=== PATIENT | female | born 2000 | race Caucasian/White ===

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

== ENCOUNTER 2021-05-19 20:31 | Emergency (ER) | payer BC ==
[2021-05-19 20:40] VITALS: BP 156/93; PULSE 117
[2021-05-19] MEDS ORDERED: Lactated Ringers 1,000 ML IV ONE (20:41)
[2021-05-19] MEDS ORDERED: Sodium Chloride 0.9% 2.5 ML Syringe FLUSH PRN (20:41)
[2021-05-19] MEDS ORDERED: Sodium Chloride 0.9% 10 ML Syringe FLUSH PRN (20:41)
--- NOTE | 2021-05-19 20:54 | EDM.PDOC ---
ED HPI GENERAL MEDICAL PROBLEM - General Chief Complaint: Gastrointestinal Problem Stated Complaint: BLOOD IN STOOL Time Seen by Provider: 05/19/21 20:36 - History of Present Illness INITIAL COMMENTS - FREE TEXT/NARRATIVE: 20-year-old female history of endometriosis history of hemorrhoids in the past presenting with minimally painful bright red blood per rectum. Patient finished a menstrual cycle 3 days ago she has had some ongoing residual abdominal pain that she was attributing to that. However this afternoon she had a bowel movement and noted to large amount of bright red blood. She inserted a tampon and left it in for period of time to ensure that this was not vaginal bleeding. The tampon has been clean and showed no evidence of blood and so she is confident that this is rectal bleeding. She notes that this is been significantly different than the hemorrhoid she has dealt with before. No fevers or chills no prior history of GI bleeding. The pain in the abdomen is in primarily the left lower quadrant. Is currently 6 out of 10 no alleviating factors or radiation. 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, left Musculoskeletal History: Reports: Other (See Below) Other Musculoskeletal History: hx of "afew minor fractures", hx dislocated elbow Neurological History: Reports: Concussion, Migraines Oncologic (Cancer) History: Reports: None Dermatologic History: Reports: Other (See Below) - Infectious Disease History Infectious Disease History: Reports: Chicken Pox - Past Surgical History Head Surgeries/Procedures: Reports: None Female Surgical History: Reports: Other (See Below) Other Female Surgeries/Procedures: ureteral reimplantation at the age of 1 Oncologic Surgical History: Reports: Biopsy of Breast Social & Family History - Family History Family Medical History: No Pertinent Family History - Caffeine Use Caffeine Use: Reports: Coffee Caffeine Use Comment: 1-2cups/day ED ROS GENERAL - Review of Systems Review Of Systems: See Below Free Text/Narrative/Comment: General: No fever. Skin: No rash. Eyes: No vision problems. ENT: No sore throat. Neck: No neck stiffness. Respiratory: No shortness of breath. Cardiac: No chest pain. Gastrointestinal: Per HPI Urinary: No dysuria. Musculoskeletal: No myalgias/arthralgias. Neurologic: No headache. ED EXAM, GENERAL - Physical Exam Exam: See Below Free Text/Narrative:: General Appearance: No acute distress, appears comfortable Skin: No rash HEENT: Normocephalic/atraumatic, sclera anicteric, mucous membranes moist Neck: Normal range of motion Chest and Lungs: Bilateral breath sounds, clear to auscultation Cardiovascular: Minimally tachycardic rate, regular rhythm, intact distal perfusion Abdomen: Soft, diffuse tenderness that is most pronounced in the left lower quadrant Back: Normal Musculoskeletal: No edema or tenderness Neurologic: Awake, alert, no obvious deficits, moving all extremities Psychiatric: Appropriate, cooperative Course - Vital Signs Last Recorded V/S: Last Vital Signs Temp 99.1 F 05/19/21 20:35 Pulse 117 H 05/19/21 20:35 Resp 18 05/19/21 20:35 BP 156/93 H 05/19/21 20:35 Pulse Ox 98 05/19/21 20:35 - Orders/Labs/Meds Orders: Active Orders 24 hr Category Date Time Status Cardiac Monitoring [RC] . DIRECTED Care 05/19/21 20:41 Active Ketorolac [Toradol] Med 05/19/21 23:35 Stat 15 mg IVPUSH NOW STA Sodium Chloride 0.9% [Saline Flush] Med 05/19/21 20:41 Active 10 ml FLUSH ASDIRECTED PRN Sodium Chloride 0.9% [Saline Flush] Med 05/19/21 20:41 Active 2.5 ml FLUSH ASDIRECTED PRN Saline Lock Insert [OM.PC] Stat Oth 05/19/21 20:41 Ordered Medication Orders Sodium Chloride (Sodium Chloride 0.9% 10 Ml Syringe) 10 ml FLUSH ASDIRECTED PRN PRN Reason: Keep Vein Open Last Admin: 05/19/21 21:27 Dose: 10 ml Documented by: LICHREYMUNDO Sodium Chloride (Sodium Chloride 0.9% 2.5 Ml Syringe) 2.5 ml FLUSH ASDIRECTED PRN PRN Reason: Keep Vein Open Last Admin: 05/19/21 21:27 Dose: 2.5 ml Documented by: BRANDON Labs: Laboratory Tests 05/19/21 05/19/21 05/19/21 Range/Units 20:40 21:30 21:30 WBC 10.86 (4.0-11.0) K/uL RBC 4.41 (4.30-5.90) M/uL Hgb 13.5 (12.0-16.0) g/dL Hct 39.5 (36.0-46.0) % MCV 89.6 (80.0-98.0) fL MCH 30.6 (27.0-32.0) pg MCHC 34.2 (31.0-37.0) g/dL RDW Std Deviation 40.0 (28.0-62.0) fl RDW Coeff of Ish 12 (11.0-15.0) % Plt Count 330 (150-400) K/uL MPV 9.00 (7.40-12.00) fL Neut % (Auto) 56.2 (48.0-80.0) % Lymph % (Auto) 36.0 (16.0-40.0) % [place] % (Auto) 6.1 (0.0-15.0) % Eos % (Auto) 1.2 (0.0-7.0) % Baso % (Auto) 0.5 (0.0-1.5) % Neut # (Auto) 6.1 H (1.4-5.7) K/uL Lymph # (Auto) 3.9 H (0.6-2.4) K/uL [place] # (Auto) 0.7 (0.0-0.8) K/uL Eos # (Auto) 0.1 (0.0-0.7) K/uL Baso # (Auto) 0.1 (0.0-0.1) K/uL Nucleated RBC % 0.0 /100WBC Nucleated RBCs # 0 K/uL Sodium 139 (136-145) mmol/L Potassium 4.0 (3.5-5.1) mmol/L Chloride 104 (98-107) mmol/L Carbon Dioxide 26.1 (21.0-32.0) mmol/L BUN 14 (7.0-18.0) mg/dL Creatinine 0.9 (0.6-1.0) mg/dL Est Cr Clr Drug Dosing 81.11 mL/min Estimated GFR (MDRD) > 60.0 ml/min Glucose 92 (74-106) mg/dL Calcium 8.7 (8.5-10.1) mg/dL Total Bilirubin 0.2 (0.2-1.0) mg/dL AST 26 (15-37) IU/L ALT 54 (14-63) IU/L Alkaline Phosphatase 107 (46-116) U/L Total Protein 6.9 (6.4-8.2) g/dL Albumin 4.0 (3.4-5.0) g/dL Globulin 2.9 (2.6-4.0) g/dL Albumin/Globulin Ratio 1.4 (0.9-1.6) Urine HCG, Qual NEGATIVE (NEGATIVE) Meds: Medications Generic Name Dose Route Start Last Admin Trade Name Freq PRN Reason Stop Dose Admin Sodium Chloride 10 ml 05/19/21 20:41 05/19/21 21:27 Sodium Chloride 0.9% 10 Ml Syringe FLUSH 10 ml ASDIRECTED PRN Administration Keep Vein Open Sodium Chloride 2.5 ml 05/19/21 20:41 05/19/21 21:27 Sodium Chloride 0.9% 2.5 Ml Syringe FLUSH 2.5 ml ASDIRECTED PRN Administration Keep Vein Open Discontinued Medications Generic Name Dose Route Start Last Admin Trade Name Freq PRN Reason Stop Dose Admin Lactated Ringer's 1,000 mls @ 999 mls/hr 05/19/21 20:41 05/19/21 21:26 Ringers, Lactated IV 05/19/21 21:41 999 mls/hr .BOLUS ONE Administration Iopamidol 100 ml 05/19/21 21:53 05/19/21 22:37 Iopamidol 755 Mg/Ml 100 Ml Bottle IVPUSH 05/19/21 21:54 100 ml ONETIME ONE Administration Departure - Departure Time of Disposition: 23:37 Disposition: Home, Self-Care 01 Condition: Good Clinical Impression: Abdominal pain - Discharge Information *PRESCRIPTION DRUG MONITORING PROGRAM REVIEWED*: Not Applicable *COPY OF PRESCRIPTION DRUG MONITORING REPORT IN PATIENT ARLETH: Not Applicable Instructions: Gastrointestinal Bleeding Referrals: Samia Patel NP [Primary Care Provider] - Forms: ED Department Discharge Additional Instructions: Your labs today showed normal blood counts normal kidney function and were without abnormality. Your CT scan was also normal. There was no sign of diverticulitis or diverticulosis. We cannot say with certainty what caused your bleeding earlier today. However because of your young age, your lack of any signs of active bleeding now, you normal vital signs normal imaging and normal blood work you do not need to be admitted to the hospital. I encourage you to follow-up with your primary doctor. If you have any further small episodes of bleeding they may wish to repeat your blood work or refer you to a specialty provider. If you have additional episodes of severe bleeding and develop severe pain chest pain shortness of breath lightheadedness or feelings like he might pass out please return to the ER. The following information is given to patients seen in the emergency department who are being discharged to home. This information is to outline your options for follow-up care. We provide all patients seen in our emergency department with a follow-up referral. The need for follow-up, as well as the timing and circumstances, are variable depending upon the specifics of your emergency department visit. If you don't have a primary care physician on staff, we will provide you with a referral. We always advise you to contact your personal physician following an emergency department visit to inform them of the circumstance of the visit and for follow-up with them and/or the need for any referrals to a consulting specialist. The emergency department will also refer you to a specialist when appropriate. This referral assures that you have the opportunity for follow-up care with a specialist. All of these measure are taken in an effort to provide you with optimal care, which includes your follow-up. Under all circumstances we always encourage you to contact your private physician who remains a resource for coordinating your care. When calling for follow-up care, please make the office aware that this follow-up is from your recent emergency room visit. If for any reason you are refused follow-up, please contact the [facility] Emergency Department at and asked to speak to the emergency department charge nurse. Sepsis Event Note (ED) - Evaluation Sepsis Screening Result: No Definite Risk - Focused Exam Vital Signs: Vital Signs Temp Pulse Resp BP Pulse Ox 05/19/21 20:35 99.1 F 117 H 18 156/93 H 98 - My Orders Last 24 Hours: My Active Orders 05/19/21 20:41 Cardiac Monitoring [RC] . DIRECTED Sodium Chloride 0.9% [Saline Flush] 10 ml FLUSH ASDIRECTED PRN Sodium Chloride 0.9% [Saline Flush] 2.5 ml FLUSH ASDIRECTED PRN Saline Lock Insert [OM.PC] Stat 05/19/21 23:35 Ketorolac [Toradol] 15 mg IVPUSH NOW STA - Assessment/Plan Last 24 Hours: My Active Orders 05/19/21 20:41 Cardiac Monitoring [RC] . DIRECTED Sodium Chloride 0.9% [Saline Flush] 10 ml FLUSH ASDIRECTED PRN Sodium Chloride 0.9% [Saline Flush] 2.5 ml FLUSH ASDIRECTED PRN Saline Lock Insert [OM.PC] Stat 05/19/21 23:35 Ketorolac [Toradol] 15 mg IVPUSH NOW STA Assessment:: 20-year-old female presenting with abdominal pain and rectal bleeding. Rectal exam pending. Internal hemorrhoids were consideration external hemorrhoids felt less likely. Diverticulitis and diverticular bleeding needs to be considered as well. Patient's check with the tampon argue strongly that this is not vaginal bleeding. Patient was on progesterone for some time to manage her endometriosis. She was recently pulled off of that by her furniture repairer so that she can start trying to get . There is no peritonitis. Labs and CT pending. Patient declines pain medication at this time. Given her tachycardia 1 L of LR has been ordered. 2325: Patient's labs are normal. We await CT result. Digital rectal exam reveals no internal or external hemorrhoids no severe pain and empty rectal vault with no gross blood. Patient has had no bowel movements since arrival in the ER. 2335: CT scan is normal. Patient continues to have 6 out of 10 cramping lower abdominal pain and accepts when offered 50 mg of IV Toradol. Patient's vital signs are good. Labs as mentioned above are unremarkable no signs of active bleeding at this time and CT is normal given all of these factors and her young age discharged with follow-up instructions felt most appropriate. Return precautions discussed and understood.
[2021-05-19 21:53] LABS: BLOOD UREA NITROGEN,BUN 14 mg/dL (7.0-18.0); CARBON DIOXIDE,CO2 26.1 mmol/L (21.0-32.0); CHLORIDE,CL 104 mmol/L (98-107); GLUCOSE RANDOM 92 mg/dL (74-106); SODIUM,NA 139 mmol/L (136-145)
[2021-05-19] MEDS ORDERED: Iopamidol 755 Mg/ML 100 ML Bottle IVPUSH ONE (21:53)
--- NOTE | 2021-05-19 23:25 | CT ---
INDICATION: Abdominal pain with rectal bleeding TECHNIQUE: CT Abdomen and pelvis with i.v. contrast. Coronal and sagittal reformats were obtained. CONTRAST: Isovue 370 COMPARISON: None FINDINGS: Lower chest: Unremarkable. Liver: Unremarkable. Spleen: Unremarkable. Pancreas: Unremarkable. Gallbladder: Unremarkable. Kidney: Unremarkable. No kidney or ureteral stones or obstruction seen. Adrenal: Unremarkable. Bowel: Unremarkable. This an appendiceal stump present measuring 1.4 cm which may be due to incomplete prior appendectomy. Correlation with surgical history is recommended. No obvious site of GI bleeding is identified by CT. Vascular: Unremarkable. Lymph: Unremarkable. Peritoneum: Unremarkable. No pneumoperitoneum is seen. No significant ascites is noted. Pelvis: Unremarkable. Soft tissue: Unremarkable. 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 IMPRESSION: 1. Unremarkable with no CT correlate for the patient`s symptoms seen. Dictated by David Ferris MD @ 05/19/2021 11:22:41 PM Please note that all CT scans at this facility use dose modulation, iterative reconstruction, and/or weight-based dosing when appropriate to reduce radiation dose to as low as reasonably achievable. Dictated by: David Ferris MD @ 05/19/2021 23:22:44 (Electronically Signed)
[2021-05-19] MEDS ORDERED: Ketorolac 15 MG/ML SDV IVPUSH STA (23:35)
== END 2021-05-20 00:03 | disposition home or self-care (01) ==
LOC: MW.ED 20:31
DX: R10.32 Left lower quadrant pain (principal); R10.84 Generalized abdominal pain; Z88.0 Allergy status to penicillin; Z91.030 Bee allergy status
CPT/HCPCS: 36415; 74177; 80053; 81025; 85025; 96374; 99285; J1885; J7120; Q9967

== ENCOUNTER 2021-05-23 10:39 | Emergency (ER) | payer BC ==
[2021-05-23] MEDS: Sodium Chloride 0.9% 1,000 ML IV ONE ×2 (11:13→11:18)
[2021-05-23] MEDS: Ondansetron 4 MG/2 ML SDV IVPUSH ONE ×2 (11:13→11:18)
--- NOTE | 2021-05-23 11:13 | EDM.PDOC ---
ED HPI GENERAL MEDICAL PROBLEM - General Chief Complaint: Gastrointestinal Problem Stated Complaint: VOMITING BLOOD Time Seen by Provider: 05/23/21 10:40 Source of Information: Reports: Patient History Limitations: Reports: No Limitations - History of Present Illness INITIAL COMMENTS - FREE TEXT/NARRATIVE: HISTORY AND PHYSICAL: History of present illness: Patient is a 20-year-old female who presents to the emergency room with complaints of nausea and blood-tinged emesis. Patient was seen in our emergency room on 05/19/2021 for right red blood per rectum and left low abdominal pain. She was seen in the emergency room which showed normal blood work and normal CT scan. She states she followed up with her PCP, Samia Patel who has put her on Flagyl and Bactrim for colitis. Started these medications yesterday and began to have nausea. Today she had a few episodes of emesis and noted she had some streaking of blood in her vomit. She continues to have left low abdominal pain. States she feels somewhat dizzy Review of systems: As per history of present illness and below otherwise all systems reviewed and negative. Past medical history: As per history of present illness and as reviewed below otherwise noncontributory. Surgical history: As per history of present illness and as reviewed below otherwise noncontributory. Social history: See social history for further information Family history: As per history of present illness and as reviewed below otherwise noncontributory. Physical exam: General: Well developed and well nourished. Alert and orientated x 3. Nontoxic in appearance and in no acute distress. Vital signs are stable and have been reviewed by me. Nursing notes were reviewed. HEENT: Atraumatic, normocephalic, pupils equal and reactive bilaterally, negative for conjunctival pallor or scleral icterus, mucous membranes moist, TMs normal bilaterally, throat clear, neck supple, nontender, trachea midline. No drooling or trismus noted. No meningeal signs. No hot potato voice noted. Lungs: Clear to auscultation bilaterally. No wheezes, rales, or rhonchi. Chest nontender. Normal work of breathing, no accessory muscles used. Heart: S1S2, regular rate and rhythm without overt murmur, gallops, or rubs. No JVD. No peripheral edema Abdomen: Soft, nondistended, nontender. Normoactive bowel sounds. Negative for masses or costovertebral tenderness. Pelvis: Stable nontender. Genitourinary/Rectal: Deferred. Skin: Intact, warm, dry. No lesions or rashes noted. Hematologic: No petechiae or purpra. Mucosa appropriate color and normal nail bed color and refill. Extremities: Atraumatic, moves all extremities per self without difficulty or deficits, negative for cords or calf pain. Neurovascular unremarkable. Neuro: Awake, alert, oriented. Cranial nerves II through XII unremarkable. Cerebellum unremarkable. Motor and sensory unremarkable throughout. Exam nonfocal. Psychiatric: Mood and affect are appropriate. Normal thought process. Answering questions appropriately. Notes: *This patient was seen and evaluated during the 2019 SARS-CoV-2 novel coronavirus pandemic period. Community viral transmission is ongoing at time of this encounter and the emergency department is operating under pandemic response procedures. 05/19/2021 patient was seen for abdominal pain and bright red blood per rectum. She had basic lab work and a CT abdomen and pelvis with IV contrast, but she was unremarkable with no concerning findings. She states she followed up with Samia Patel who has now put her on Flagyl and Bactrim for colitis. Started these medications yesterday and began to have nausea I have talked with the patient about today's findings, in addition to providing specific details for plan of care. Reassessment at the time of disposition demonstrates that the patient is in no acute distress. The patient is stable for discharge, counseling was provided and we discussed in great detail signs and symptoms that would prompt them to return to the Emergency Department. Medication, follow up and supportive care measures were reviewed and discussed. Voices understanding and is agreeable to plan of care. Denies any further questions or concerns at this time. Diagnostics: Therapeutics: Prescription: Impression: Plan: 1. You were evaluated today on an emergent basis. Your lab work was within normal limits. Please be careful with the medications you are taking, as they can cause upset stomach. Avoid alcohol. Use the Zofran as needed. 2. You can alternate Tylenol and ibuprofen as needed for pain and fever m anagement. 3. We encourage you to follow up with your primary care provider and/or recommended specialist in the next few days for re-evaluation and further care/management. 4. If your symptoms should worsen, new symptoms develop or any of the signs and symptoms we discussed should arise please return to the emergency room or call 911 (if needed). Definitive disposition and diagnosis as appropriate pending reevaluation and review of above. - Related Data Allergies Allergy/AdvReac Type Severity Reaction Status Date / Time Penicillins Allergy Anaphylactic Verified 05/23/21 11:01 Shock bee stings Allergy Anaphylactic Uncoded 05/23/21 11:01 Shock Home Meds: Home Meds Rizatriptan Benzoate [Rizatriptan] 10 mg PO ASDIRECTED PRN 05/19/21 [History] Sulfamethoxazole/Trimethoprim [Bactrim Ds Tablet] 1 tab PO ASDIRECTED 05/23/21 [History] metroNIDAZOLE [Flagyl] 1 tab PO ASDIRECTED 05/23/21 [History] traMADol [Ultram] 1 tab PO ASDIRECTED 05/23/21 [History] Past Medical History HEENT History: Reports: Sinusitis, Other (See Below) Other HEENT History: has dental braces Respiratory History: Reports: Other (See Below) Genitourinary History: Reports: None 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, 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 Musculoskeletal History: Reports: Other (See Below) Other Musculoskeletal History: hx of "afew minor fractures", hx dislocated elbow Neurological History: Reports: Concussion, Migraines Oncologic (Cancer) History: Reports: None Dermatologic History: Reports: Other (See Below) - Infectious Disease History Infectious Disease History: Reports: Chicken Pox - Past Surgical History Head Surgeries/Procedures: Reports: None Female Surgical History: Reports: Other (See Below) Other Female Surgeries/Procedures: ureteral reimplantation at the age of 1 Neurological Surgical History: Reports: None Oncologic Surgical History: Reports: Biopsy of Breast Social & Family History - Family History Family Medical History: No Pertinent Family History - Tobacco Use Tobacco Use Status *Q: Never Tobacco User - Caffeine Use Caffeine Use: Reports: Coffee Caffeine Use Comment: 1-2cups/day - Recreational Drug Use Recreational Drug Use: No ED ROS GENERAL - Review of Systems Review Of Systems: Comprehensive ROS is negative, except as noted in HPI. ED EXAM, GI/ABD - Physical Exam Exam: See Below (See dictation) Course - Vital Signs Last Recorded V/S: Last Vital Signs Temp 96.7 F L 05/23/21 11:02 Pulse 98 05/23/21 11:56 Resp 16 05/23/21 11:56 BP 121/76 05/23/21 11:56 Pulse Ox 96 05/23/21 11:56 Orthostatic Blood Pressure [ 121/76 Standing] Orthostatic Blood Pressure [ 115/66 Sitting] Orthostatic Blood Pressure [ 117/76 Supine] - Orders/Labs/Meds Orders: Active Orders 24 hr Category Date Time Status Orthostatic Vital Signs [RC] ASDIRECTED Care 05/23/21 11:13 Active Labs: Laboratory Tests 05/23/21 05/23/21 05/23/21 Range/Units 11:15 11:15 11:15 WBC 8.91 (4.0-11.0) K/uL RBC 4.37 (4.30-5.90) M/uL Hgb 13.6 (12.0-16.0) g/dL Hct 39.0 (36.0-46.0) % MCV 89.2 (80.0-98.0) fL MCH 31.1 (27.0-32.0) pg MCHC 34.9 (31.0-37.0) g/dL RDW Std Deviation 39.6 (28.0-62.0) fl RDW Coeff of Ish 12 (11.0-15.0) % Plt Count 315 (150-400) K/uL MPV 8.90 (7.40-12.00) fL Neut % (Auto) 64.7 (48.0-80.0) % Lymph % (Auto) 24.9 (16.0-40.0) % [place] % (Auto) 7.6 (0.0-15.0) % Eos % (Auto) 2.1 (0.0-7.0) % Baso % (Auto) 0.7 (0.0-1.5) % Neut # (Auto) 5.8 H (1.4-5.7) K/uL Lymph # (Auto) 2.2 (0.6-2.4) K/uL [place] # (Auto) 0.7 (0.0-0.8) K/uL Eos # (Auto) 0.2 (0.0-0.7) K/uL Baso # (Auto) 0.1 (0.0-0.1) K/uL Nucleated RBC % 0.0 /100WBC Nucleated RBCs # 0 K/uL INR 1.08 Sodium 139 (136-145) mmol/L Potassium 4.1 (3.5-5.1) mmol/L Chloride 103 (98-107) mmol/L Carbon Dioxide 27.7 (21.0-32.0) mmol/L BUN 12 (7.0-18.0) mg/dL Creatinine 1.0 (0.6-1.0) mg/dL Est Cr Clr Drug Dosing 73.00 mL/min Estimated GFR (MDRD) > 60.0 ml/min Glucose 92 (74-106) mg/dL Calcium 8.8 (8.5-10.1) mg/dL Total Bilirubin 0.4 (0.2-1.0) mg/dL AST 52 H (15-37) IU/L ALT 78 H (14-63) IU/L Alkaline Phosphatase 105 (46-116) U/L Total Protein 7.0 (6.4-8.2) g/dL Albumin 4.1 (3.4-5.0) g/dL Globulin 2.9 (2.6-4.0) g/dL Albumin/Globulin Ratio 1.4 (0.9-1.6) Meds: Medications Discontinued Medications Generic Name Dose Route Start Last Admin Trade Name Freq PRN Reason Stop Dose Admin Sodium Chloride 1,000 mls @ 999 mls/hr 05/23/21 10:59 05/23/21 11:18 Normal Saline IV 05/23/21 11:59 Not Given STAT ONE Ondansetron HCl 4 mg 05/23/21 10:59 05/23/21 11:18 Ondansetron 4 Mg/2 Ml Sdv IVPUSH 05/23/21 11:00 Not Given ONETIME ONE Ondansetron HCl 4 mg 05/23/21 11:19 05/23/21 11:29 Ondansetron 4 Mg Tab.Dis PO 05/23/21 11:20 4 mg ONETIME ONE Administration Departure - Departure Time of Disposition: 12:16 Disposition: Home, Self-Care 01 Clinical Impression: Gastritis - Discharge Information Instructions: Gastritis, Adult, [id number] Referrals: Samia Patel [facility] [employer] [facility] [Primary Care Provider] - Forms: ED Department Discharge Additional Instructions: The following information is given to patients seen in the emergency department who are being discharged to home. This information is to outline your options for follow-up care. We provide all patients seen in our emergency department with a follow-up referral. The need for follow-up, as well as the timing and circumstances, are variable depending upon the specifics of your emergency department visit. If you don't have a primary care physician on staff, we will provide you with a referral. We always advise you to contact your personal physician following an emergency department visit to inform them of the circumstance of the visit and for follow-up with them and/or the need for any referrals to a consulting specialist. The emergency department will also refer you to a specialist when appropriate. This referral assures that you have the opportunity for follow-up care with a specialist. All of these measure are taken in an effort to provide you with optimal care, which includes your follow-up. Under all circumstances we always encourage you to contact your private physician who remains a resource for coordinating your care. When calling for follow-up care, please make the office aware that this follow-up is from your recent emergency room visit. If for any reason you are refused follow-up, please contact the [facility] Emergency Department at and asked to speak to the emergency department charge nurse. [facility] [address] [place] [id number] [address] Thank you for choosing the [facility] emergency department in [place] for your medical needs today. It was a pleasure caring for you. Today you were seen in the emergency department for nausea and vomiting. 1. You were evaluated today on an emergent basis. Your lab work was within normal limits. Please be careful with the medications you are taking, as they can cause upset stomach. Avoid alcohol. Use the Zofran as needed. 2. You can alternate Tylenol and ibuprofen as needed for pain and fever management. 3. We encourage you to follow up with your primary care provider and/or recommended specialist in the next few days for re-evaluation and further care/management. 4. If your symptoms should worsen, new symptoms develop or any of the signs and symptoms we discussed should arise please return to the emergency room or call 911 (if needed). Sepsis Event Note (ED) - Evaluation Sepsis Screening Result: Possible Sepsis Risk - Focused Exam Vital Signs: Vital Signs Temp Pulse Resp BP Pulse Ox 05/23/21 11:56 98 16 121/76 96 05/23/21 11:02 96.7 F L 94 17 140/90 94 L - My Orders Last 24 Hours: My Active Orders 05/23/21 11:13 Orthostatic Vital Signs [RC] ASDIRECTED - Assessment/Plan Last 24 Hours: My Active Orders 05/23/21 11:13 Orthostatic Vital Signs [RC] ASDIRECTED
[2021-05-23] MEDS ORDERED: Ondansetron 4 MG Tab.DIS PO ONE (11:19)
[2021-05-23 11:57] VITALS: BP 121/76; PULSE 98
[2021-05-23 12:09] LABS: BLOOD UREA NITROGEN,BUN 12 mg/dL (7.0-18.0); CARBON DIOXIDE,CO2 27.7 mmol/L (21.0-32.0); CHLORIDE,CL 103 mmol/L (98-107); GLUCOSE RANDOM 92 mg/dL (74-106); POTASSIUM,K 4.1 mmol/L (3.5-5.1); SODIUM,NA 139 mmol/L (136-145)
== END 2021-05-23 12:23 | disposition home or self-care (01) ==
LOC: MW.ED 10:39
DX: K29.70 Gastritis, unspecified, without bleeding (principal); Z88.0 Allergy status to penicillin; Z91.030 Bee allergy status
CPT/HCPCS: 36415; 80053; 85025; 85610; 99284; A9270; J2405; J7030

== ENCOUNTER 2021-05-23 21:14 | Emergency (ER) | payer BC ==
[2021-05-23] MEDS ORDERED: Sodium Chloride 0.9% 1,000 ML IV ONE (21:21)
[2021-05-23] MEDS ORDERED: Ondansetron 4 MG/2 ML SDV IVPUSH ONE (21:29)
[2021-05-23 21:58] LABS: BLOOD UREA NITROGEN,BUN 13 mg/dL (7.0-18.0); CARBON DIOXIDE,CO2 21.7 mmol/L (21.0-32.0); CHLORIDE,CL 103 mmol/L (98-107); GLUCOSE RANDOM 100 mg/dL (74-106); SODIUM,NA 138 mmol/L (136-145)
[2021-05-23] MEDS ORDERED: Ondansetron 4 MG Tab.DIS PO ONE (22:30)
[2021-05-23] MEDS ORDERED: Dextrose 5%-Lactated Ringers 1,000 ML IV SCH (23:30)
[2021-05-24] MEDS ORDERED: Iopamidol 755 MG/ML 500 ML Multipack Bottle IVPUSH STA (00:20)
--- NOTE | 2021-05-24 01:04 | CT ---
INDICATION: Pain and blood in stool for 5 days. TECHNIQUE: Axial images were obtained from the diaphragm to the pubic symphysis. Reformats were obtained in the coronal and sagittal plane. IV Contrast: 100 cc Isovue 370 Oral Contrast: None COMPARISON: Abdomen and pelvis CT 05/19/2021 FINDINGS: Lower chest: Minimal discoid atelectasis left lung base. Liver: Unremarkable. Normal in size and attenuation. No masses. Gallbladder and bile ducts: Faint densities within the gallbladder lumen, question noncalcified stones (series 203, image 43). Spleen: Unremarkable. Normal in size without mass. Pancreas: Unremarkable. No mass or inflammation. Adrenal glands: Unremarkable. No nodules. Kidneys: Unremarkable. No masses, stones, or hydronephrosis. Vasculature: Unremarkable. GI tract: Stomach is unremarkable. No dilated loops of large or small intestine. Small appendix re- demonstrated which appears unremarkable. Moderate amount of stool within the colon. Pelvis: Bladder unremarkable. Anteverted uterus. Right ovarian cyst measures 18 millimeters. Bones: Spondylolysis L5 with 8 millimeter anterolisthesis at L5-S1. IMPRESSION: 1. No dilated bowel or localized inflammation. Large amount of stool within the colon. 2. 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 3. Likely cholelithiasis without CT evidence of cholecystitis. Please note that all CT scans at this facility use dose modulation, iterative reconstruction, and/or weight-based dosing when appropriate to reduce radiation dose to as low as reasonably achievable. Dictated by Severiano Rascon MD @ 05/24/2021 1:04:[address] Severiano Rascon @ May 24 2021 1:04AM
[2021-05-24 01:58] VITALS: BP 117/62; PULSE 72
--- NOTE | 2021-05-24 02:07 | EDM.PDOC ---
ED HPI GENERAL MEDICAL PROBLEM - General Chief Complaint: Gastrointestinal Problem Stated Complaint: VOMITING UP BLOOD Time Seen by Provider: 05/23/21 21:45 - History of Present Illness INITIAL COMMENTS - FREE TEXT/NARRATIVE: CHIEF COMPLAINT(S): Nausea and vomiting HISTORY OF PRESENT ILLNESS: This is a 20-year-old woman with multiple recent emergency department visits and her primary care physician visit who started on Bactrim and Flagyl for presumed colitis who comes into the emergency department today with a chief complaint of continued abdominal pain, nausea and vomiting. Patient states that she was having some bright red blood per rectum and they did a CT which was normal. She states that it did not improve so she followed up with her primary care physician who started her on Flagyl and Bactrim. She states that she was here recently after starting those antibiotics and had some nausea. She states that she had some vomiting at that time which had some streaking of blood in her vomit. She states that she continues to have the lower abdominal pain and has continued nausea and vomiting. She denies any melena or hematochezia. She denies any hematemesis or bilious emesis. She has not yet tried anything for the nausea. She describes her pain as achy and crampy rated 4-5 out of 10. She denies any radiation of this pain. There are no aggravating or relieving factors. This pain is constant. She denies any dysuria, hematuria, vaginal bleeding or vaginal discharge. REVIEW OF SYSTEMS: Constitutional: Denies fever, chills. Eyes: Denies eye pain Ears, Nose, Mouth, & Throat: Denies earache Cardiovascular: Denies chest pain Respiratory: Denies shortness of breath Gastrointestinal: Positive for abdominal pain, nausea vomiting. Denies diarrhea, hematochezia, hematemesis, bilious emesis Genitourinary: Denies hematuria Skin:Denies a rash MSK: Denies joint pain Neurological: Denies blurred vision Psychiatric: Denies depression PAST MEDICAL HISTORY: As per history of present illness and as reviewed below otherwise noncontributory. SURGICAL HISTORY: As per history of present illness and as reviewed below otherwise noncontributory. SOCIAL HISTORY: As per history of present illness and as reviewed below otherwise noncontributory. FAMILY HISTORY: As per history of present illness and as reviewed below otherwise noncontributory. EXAMINATION OF ORGAN SYSTEMS/BODY AREAS: Constitutional: Blood pressure is 125/86, heart rate 95, respiratory rate 18 with an oxygen saturation 97% on room air. Temperature 36.3 General: Young woman who does not appear to be in acute distress Psychiatric: Appropriate mood and affect. Eyes: No scleral icterus or conjunctival erythema ENMT: Moist mucous membranes. No pharyngeal erythema Cardiovascular: Regular, rate, and rhythm. No gallops, murmurs, or rubs. Bilateral upper extremity pulses symmetric and intact. No peripheral edema. No JVD. Respiratory: Lungs clear to auscultation bilaterally. No wheezes, rales, or rhonchi. Gastrointestinal: Soft, non-tender, non-distended. Normoactive bowel sounds no rebound or guarding. Genitourinary: No suprapubic tenderness no CVA tenderness musculoskeletal: Normal range of motion. Skin: No lesions or abrasions. Neurological: Alert, GCS 15 MEDICAL DECISION MAKING AND COURSE IN THE ED WITH INTERPRETATION/REVIEW OF DIAGNOSTIC STUDIES: This is a 20-year-old woman with multiple recent emergency department visits who was started on Bactrim and Flagyl for presumed colitis by outpatient primary care physician who comes to the emergency department for the second time for continued abdominal pain, nausea and vomiting. The patient has overall normal vital signs and an unrevealing examination. At this time I do believe the patient's symptoms are likely secondary to antibiotics given this is exactly what they cause. We will provide the patient with D5 LR and provide the patient with Zofran for nausea. We will reevaluate after this. Will obtain labs including CBC, CMP, urinalysis. I do not believe any imaging is indicated. Laboratory analysis was unremarkable except for transaminitis which is unchanged from earlier today. AST was 54, ALT 79. Urinalysis was negative. On reevaluation the patient did attempt a trial p.o. toleration. She had spitting up of this. Given the continued vomiting I did discuss with patient that we could repeat the CT to evaluate for this presumed colitis that her primary care physician had started her on antibiotics for. I still believe this is secondary to the antibiotic she is on. She was amenable to this plan. The radiological images were viewed by myself along with reading the report from the radiologist. CT abdomen pelvis reveals no dilated bowel or localized inflammation. There is a large amount of stool. There is cholelithiasis without cholecystitis. After imaging the patient was able to tolerate p.o. I did discuss her at this time that there is no CT evidence of colitis and I recommend she stop taking the antibiotics as she is afebrile and does not have a white count. I discussed with her that she should continue with a bland diet and to take Tylenol and Motrin for pain relief. She is given strict return precautions. She was amenable discharge at this time and had no further questions DISPOSITION: The patient was discharged home in stable condition. The patient will follow up with primary care physician in 3 to 5 days CONDITION: Fair PROCEDURES: None FINAL IMPRESSION(S)/DIAGNOSES: 1. Acute abdominal pain 2. Acute nausea and vomiting likely secondary to antibiotics Fernando Randall M.D. Abdomen Pain Score (Numeric/FACES): 7 - Related Data Allergies Allergy/AdvReac Type Severity Reaction Status Date / Time Penicillins Allergy Anaphylactic Verified 05/23/21 11:01 Shock bee stings Allergy Anaphylactic Uncoded 05/23/21 11:01 Shock Home Meds: Home Meds Rizatriptan Benzoate [Rizatriptan] 10 mg PO ASDIRECTED PRN 05/19/21 [History] Sulfamethoxazole/Trimethoprim [Bactrim Ds Tablet] 1 tab PO ASDIRECTED 05/23/21 [History] metroNIDAZOLE [Flagyl] 1 tab PO ASDIRECTED 05/23/21 [History] traMADol [Ultram] 1 tab PO ASDIRECTED 05/23/21 [History] Ondansetron [Zofran ODT] 4 mg PO Q6HR #8 tab.dis 05/24/21 [Rx] Past Medical History HEENT History: Reports: Sinusitis, Other (See Below) Other HEENT History: has dental braces Cardiovascular History: Reports: None Respiratory History: Reports: None Gastrointestinal History: Reports: None Genitourinary History: Reports: None Other [employer] History: breast lump surgery, left Musculoskeletal History: Reports: Other (See Below) Other Musculoskeletal History: hx of "afew minor fractures", hx dislocated elbow Neurological History: Reports: Concussion, Migraines Psychiatric History: Reports: None Endocrine/Metabolic History: Reports: None Insulin Pump Model and Tacker Off: None Hematologic History: Reports: None Immunologic History: Reports: None Oncologic (Cancer) History: Reports: None Dermatologic History: Reports: None - Infectious Disease History Infectious Disease History: Reports: Chicken Pox - Past Surgical History Head Surgeries/Procedures: Reports: None Female Surgical History: Reports: Other (See Below) Other Female Surgeries/Procedures: ureteral reimplantation at the age of 1 Neurological Surgical History: Reports: None Oncologic Surgical History: Reports: Biopsy of Breast Social & Family History - Family History Family Medical History: No Pertinent Family History - Caffeine Use Caffeine Use: Reports: None Caffeine Use Comment: 1-2cups/day - Recreational Drug Use Recreational Drug Use: No ED ROS GENERAL - Review of Systems Review Of Systems: See Below ED EXAM, GENERAL - Physical Exam Exam: See Below Course - Vital Signs Last Recorded V/S: Last Vital Signs Temp 36.3 C 05/23/21 21:25 Pulse 72 05/24/21 01:57 Resp 14 05/24/21 01:57 BP 117/62 05/24/21 01:57 Pulse Ox 100 05/24/21 01:57 - Orders/Labs/Meds Labs: Laboratory Tests 05/23/21 05/23/21 05/23/21 Range/Units 21:35 21:35 21:46 WBC 10.93 (4.0-11.0) K/uL RBC 4.41 (4.30-5.90) M/uL Hgb 14.0 (12.0-16.0) g/dL Hct 39.3 (36.0-46.0) % MCV 89.1 (80.0-98.0) fL MCH 31.7 (27.0-32.0) pg MCHC 35.6 (31.0-37.0) g/dL RDW Std Deviation 39.9 (28.0-62.0) fl RDW Coeff of Ish 12 (11.0-15.0) % Plt Count 334 (150-400) K/uL MPV 9.10 (7.40-12.00) fL Neut % (Auto) 65.3 (48.0-80.0) % Lymph % (Auto) 25.2 (16.0-40.0) % [place] % (Auto) 6.9 (0.0-15.0) % Eos % (Auto) 2.1 (0.0-7.0) % Baso % (Auto) 0.5 (0.0-1.5) % Neut # (Auto) 7.1 H (1.4-5.7) K/uL Lymph # (Auto) 2.8 H (0.6-2.4) K/uL [place] # (Auto) 0.8 (0.0-0.8) K/uL Eos # (Auto) 0.2 (0.0-0.7) K/uL Baso # (Auto) 0.1 (0.0-0.1) K/uL Nucleated RBC % 0.0 /100WBC Nucleated RBCs # 0 K/uL Sodium 138 (136-145) mmol/L Potassium 4.0 (3.5-5.1) mmol/L Chloride 103 (98-107) mmol/L Carbon Dioxide 21.7 (21.0-32.0) mmol/L BUN 13 (7.0-18.0) mg/dL Creatinine 1.0 (0.6-1.0) mg/dL Est Cr Clr Drug Dosing 73.00 mL/min Estimated GFR (MDRD) > 60.0 ml/min Glucose 100 (74-106) mg/dL Calcium 9.1 (8.5-10.1) mg/dL Total Bilirubin 0.4 (0.2-1.0) mg/dL AST 54 H (15-37) IU/L ALT 79 H (14-63) IU/L Alkaline Phosphatase 104 (46-116) U/L Total Protein 7.1 (6.4-8.2) g/dL Albumin 4.1 (3.4-5.0) g/dL Globulin 3.0 (2.6-4.0) g/dL Albumin/Globulin Ratio 1.4 (0.9-1.6) Urine Color DARK YELLOW Urine Appearance SLT CLOUDY Urine pH 6.0 (5.0-8.0) Ur Specific [place] >= 1.030 (1.001-1.035) Urine Protein NEGATIVE (NEGATIVE) mg/dL Urine Glucose (UA) NEGATIVE (NEGATIVE) mg/dL Urine Ketones TRACE H (NEGATIVE) mg/dL Urine Occult Blood TRACE-INTACT H (NEGATIVE) Urine Nitrite NEGATIVE (NEGATIVE) Urine Bilirubin NEGATIVE (NEGATIVE) Urine Urobilinogen 1.0 (<2.0) EU/dL Ur Leukocyte Esterase SMALL H (NEGATIVE) Urine RBC 0-3 (0-2/HPF) Urine WBC 3-6 (0-5/HPF) Ur Epithelial Cells FEW (NONE-FEW) Urine Bacteria 3+ H (NEGATIVE) Urine HCG, Qual (NEGATIVE) 05/23/21 Range/Units 21:46 WBC (4.0-11.0) K/uL RBC (4.30-5.90) M/uL Hgb (12.0-16.0) g/dL Hct (36.0-46.0) % MCV (80.0-98.0) fL MCH (27.0-32.0) pg MCHC (31.0-37.0) g/dL RDW Std Deviation (28.0-62.0) fl RDW Coeff of Ish (11.0-15.0) % Plt Count (150-400) K/uL MPV (7.40-12.00) fL Neut % (Auto) (48.0-80.0) % Lymph % (Auto) (16.0-40.0) % [place] % (Auto) (0.0-15.0) % Eos % (Auto) (0.0-7.0) % Baso % (Auto) (0.0-1.5) % Neut # (Auto) (1.4-5.7) K/uL Lymph # (Auto) (0.6-2.4) K/uL [place] # (Auto) (0.0-0.8) K/uL Eos # (Auto) (0.0-0.7) K/uL Baso # (Auto) (0.0-0.1) K/uL Nucleated RBC % /100WBC Nucleated RBCs # K/uL Sodium (136-145) mmol/L Potassium (3.5-5.1) mmol/L Chloride (98-107) mmol/L Carbon Dioxide (21.0-32.0) mmol/L BUN (7.0-18.0) mg/dL Creatinine (0.6-1.0) mg/dL Est Cr Clr Drug Dosing mL/min Estimated GFR (MDRD) ml/min Glucose (74-106) mg/dL Calcium (8.5-10.1) mg/dL Total Bilirubin (0.2-1.0) mg/dL AST (15-37) IU/L ALT (14-63) IU/L Alkaline Phosphatase (46-116) U/L Total Protein (6.4-8.2) g/dL Albumin (3.4-5.0) g/dL Globulin (2.6-4.0) g/dL Albumin/Globulin Ratio (0.9-1.6) Urine Color Urine Appearance Urine pH (5.0-8.0) Ur Specific [place] (1.001-1.035) Urine Protein (NEGATIVE) mg/dL Urine Glucose (UA) (NEGATIVE) mg/dL Urine Ketones (NEGATIVE) mg/dL Urine Occult Blood (NEGATIVE) Urine Nitrite (NEGATIVE) Urine Bilirubin (NEGATIVE) Urine Urobilinogen (<2.0) EU/dL Ur Leukocyte Esterase (NEGATIVE) Urine RBC (0-2/HPF) Urine WBC (0-5/HPF) Ur Epithelial Cells (NONE-FEW) Urine Bacteria (NEGATIVE) Urine HCG, Qual NEGATIVE (NEGATIVE) Meds: Medications Discontinued Medications Generic Name Dose Route Start Last Admin Trade Name Freq PRN Reason Stop Dose Admin Sodium Chloride 1,000 mls @ 999 mls/hr 05/23/21 21:21 05/23/21 21:28 Normal Saline IV 05/23/21 22:21 999 mls/hr STAT ONE Administration Dextrose/Lactated Ringer's 1,000 mls @ 999 mls/hr 05/23/21 23:30 05/23/21 23:41 Dextrose 5%-Lactated Ringers IV 999 mls/hr ASDIRECTED HERNANDEZ Administration Iopamidol 100 ml 05/24/21 00:20 05/24/21 00:20 Iopamidol 755 Mg/Ml 500 Ml Multipack Bottle IVPUSH 05/24/21 00:21 100 ml ONETIME STA Administration Ondansetron HCl 4 mg 05/23/21 21:29 05/23/21 21:36 Ondansetron 4 Mg/2 Ml Sdv IVPUSH 05/23/21 21:30 4 mg ONETIME ONE Administration Ondansetron HCl 4 mg 05/23/21 22:30 05/23/21 22:34 Ondansetron 4 Mg Tab.Dis PO 05/23/21 22:31 4 mg ONETIME ONE Administration Departure - Departure Time of Disposition: 02:07 Disposition: Home, Self-Care 01 Condition: Fair Clinical Impression: Abdominal pain, Vomiting - Discharge Information *PRESCRIPTION DRUG MONITORING PROGRAM REVIEWED*: No *COPY OF PRESCRIPTION DRUG MONITORING REPORT IN PATIENT ARLETH: No Prescriptions: Ondansetron [Zofran ODT] 4 mg PO Q6HR #8 tab.dis Instructions: Abdominal Pain, Adult, [id number], Nausea and Vomiting, Adult Referrals: Samia Patel, VASCULAR SURGEON [Primary Care Provider] - Forms: ED Department Discharge Additional Instructions: Your evaluated today on an emergent basis. At this time I do recommend that you use the Zofran as needed for nausea and vomiting. At this time I do recommend you stop the antibiotics at the burst prescribed to you as there is no evidence of colitis on CT and I do believe your symptoms are likely secondary to the antibiotic usage. If you have any worsening pain, fever I would like you to return to the emergency department. Otherwise please follow-up with primary care physician in 3 to 5 days. [facility] - Primary Care [address] [place] [address] [place] [address] The patient is informed of any results of their evaluation and diagnostic workup and all questions are answered. They are given discharge instructions and return precautions. The patient is stable for discharge. The patient states they understand and agree with the plan and that they will return if their symptoms get worse or if they have any new concerns. The following information is given to patients seen in the emergency department who are being discharged to home. This information is to outline your options for follow-up care. We provide all patients seen in our emergency department with a follow-up referral. The need for follow-up, as well as the timing and circumstances, are variable depending upon the specifics of your emergency department visit. If you don't have a primary care physician on staff, we will provide you with a referral. We always advise you to contact your personal physician following an emergency department visit to inform them of the circumstance of the visit and for follow-up with them and/or the need for any referrals to a consulting specialist. The emergency department will also refer you to a specialist when appropriate. This referral assures that you have the opportunity for follow-up care with a specialist. All of these measure are taken in an effort to provide you with optimal care, which includes your follow-up. Under all circumstances we always encourage you to contact your private physician who remains a resource for coordinating your care. When calling for follow-up care, please make the office aware that this follow-up is from your recent emergency room visit. If for any reason you are refused follow-up, please contact the [facility] Emergency Department at and asked to speak to the emergency department charge nurse. Sepsis Event Note (ED) - Evaluation Sepsis Screening Result: No Definite Risk
--- NOTE | 2021-05-24 03:40 | PCM.EKG ---
#1 Interpretation EKG Date: 05/23/21 Time: 23:44 Rhythm: NSR Rate (Beats/Min): 81 [place]: Normal P-Wave: Present QRS: Normal ST-T: Normal QT: Prolonged Comparison: NA - No Prior EKG EKG Interpretation Comments: Sinus Rhythm with Prolonged QT
== END 2021-05-24 02:10 | disposition home or self-care (01) ==
LOC: MW.ED 21:14
DX: R11.2 Nausea with vomiting, unspecified (principal); R10.9 Unspecified abdominal pain; Z88.0 Allergy status to penicillin; Z91.030 Bee allergy status; Z79.899 Other long term (current) drug therapy
CPT/HCPCS: 36415; 74177; 80053; 81001; 81025; 85025; 93005; 96374; 99284; A9270; J2405; J7030; J7121; Q9967

== ENCOUNTER 2022-01-04 21:13 | Emergency (ER) | payer BC ==
[2022-01-04] MEDS ORDERED: Morphine 2 MG/ML SYRINGE IVPUSH ONE (21:27)
[2022-01-04 22:27] LABS: BLOOD UREA NITROGEN,BUN 11 mg/dL (7.0-18.0); CHLORIDE,CL 102 mmol/L (98-107); GLUCOSE RANDOM 115 mg/dL (74-106); POTASSIUM,K 3.4 mmol/L (3.5-5.1); SODIUM,NA 141 mmol/L (136-145)
[2022-01-04] MEDS ORDERED: Cephalexin 500 MG Cap PO ONE (23:42)
[2022-01-05 00:19] VITALS: BP 135/61; PULSE 94
[2022-01-06 12:07] LABS: C.TRACHOMATIS BY TMA Negative (Negative); N.GONORRHOEAE BY TMA Negative (Negative)
== END 2022-01-05 00:19 | disposition home or self-care (01) ==
LOC: MW.ED 21:13
DX: O46.91 Antepartum hemorrhage, unspecified, first trimester (principal); O23.41 Unspecified infection of urinary tract in pregnancy, first trimester; N39.0 Urinary tract infection, site not specified; Z3A.01 Less than 8 weeks gestation of pregnancy; Z91.030 Bee allergy status; Z88.0 Allergy status to penicillin
CPT/HCPCS: 36415; 76801; 80053; 81001; 84702; 85025; 86900; 86901; 87086; 87088; 87186; 87480; 87491; 87510; 87591; 87660; 96374; 99284; A9270; J2270

== ENCOUNTER 2022-08-26 09:29 | Inpatient (IN) | payer BC, OTHER ==
[2022-08-26] MEDS ORDERED: Terbutaline 1 MG/ML SDV SUBCUT PRN (10:37)
[2022-08-26] MEDS ORDERED: Misoprostol 25 MCG (1/4 of 100 MCG) Tab VAG PRN ×2 (10:37)
[2022-08-26] MEDS ORDERED: Butorphanol 1 MG/ML SDV IVPUSH PRN (10:41)
[2022-08-26] MEDS ORDERED: Oxytocin/0.9 % Sodium Chloride 30 UNIT/500 ML BAG IV SCH (10:45)
[2022-08-26] MEDS ORDERED: Lactated Ringers 1,000 ML IV SCH (12:00)
[2022-08-26 12:44] LABS: CORONAVIRUS COVID-19 NAA NEGATIVE (NEGATIVE); INFLUENZA A NAA NEGATIVE (NEGATIVE); INFLUENZA B NAA NEGATIVE (NEGATIVE)
[2022-08-26] MEDS ORDERED: Ropivacaine/PF 400 MG/200 ML PCA ONE (19:48)
[2022-08-26] MEDS ORDERED: Ondansetron 4 MG/2 ML SDV ONE (20:01)
[2022-08-26] MEDS ORDERED: Ondansetron 4 MG/2 ML SDV IVPUSH PRN (20:11)
[2022-08-26] MEDS ORDERED: ePHEDrine 50 MG/ML SDV IVPUSH PRN (21:29)
[2022-08-26] MEDS ORDERED: Ropivacaine HCl/PF 400 MG in Premix Bag 1 BAG EPIDUR SCH (21:30)
[2022-08-26] MEDS ORDERED: Phenylephrine HCl In 0.9% NaCl 1 MG/10 ML Vial IVPUSH SCH (21:30)
[2022-08-27] MEDS ORDERED: Bisacodyl 10 MG Supp RECTAL PRN (02:21)
[2022-08-27] MEDS ORDERED: Tranexamic Acid 1,000 MG in Sodium Chloride 0.9% 100 ML IV PRN (02:21)
[2022-08-27] MEDS ORDERED: Witch Hazel Medicated Pads 40/Jar TOP PRN (02:21)
[2022-08-27] MEDS ORDERED: Benzocaine/Menthol 20%-0.5% Spray 78 GM Cannister TOP PRN (02:21)
[2022-08-27] MEDS ORDERED: Lanolin 100% Cream 7 GM Tube TOP PRN (02:21)
[2022-08-27] MEDS ORDERED: Acetaminophen 500 MG Tab PO PRN (02:21)
[2022-08-27] MEDS ORDERED: Ibuprofen 400 MG Tab PO PRN (02:21)
[2022-08-27] MEDS: Ibuprofen 800 MG Tab PO PRN ×3 (06:53→18:54)
[2022-08-27] MEDS: Prenatal Multivitamin with Calcium/Folic Acid/Iron Tab PO SCH (09:42)
[2022-08-27] MEDS: Acetaminophen 500 MG Tab PO PRN ×3 (09:42→22:13)
[2022-08-27] MEDS: Docusate Sodium 100 MG Cap PO PRN (11:22)
[2022-08-28] MEDS: Docusate Sodium 100 MG Cap PO PRN (01:00)
[2022-08-28] MEDS: Acetaminophen 500 MG Tab PO PRN ×2 (03:31→09:28)
[2022-08-28] MEDS: Ibuprofen 800 MG Tab PO PRN (06:33)
[2022-08-28 08:35] VITALS: BP 131/57; PULSE 110
[2022-08-28] MEDS: Prenatal Multivitamin with Calcium/Folic Acid/Iron Tab PO SCH (09:27)
== END 2022-08-28 12:27 | disposition home or self-care (01) | DRG 560 ==
LOC: MW.OBCHECK 09:29 → MW.OB 09:30 → MW.OBCHECK 10:10 → MW.OB 10:15 → OBSVTOIN 08-27 01:24 → MW.OB 08-27 06:35
PROVIDERS: ADMIT Obstetrics & Gynecology; ATTEND Obstetrics & Gynecology
PROC: 10E0XZZ Delivery of Products of Conception, External Approach (ICD-10-PCS; principal; 2022-08-27)
PROC: 0UQMXZZ Repair Vulva, External Approach (ICD-10-PCS; 2022-08-27)
PROC: 3E0P7VZ Introduction of Hormone into Female Reproductive, Via Natural or Artificial Opening (ICD-10-PCS; 2022-08-27)
PROC: 3E033VJ Introduction of Other Hormone into Peripheral Vein, Percutaneous Approach (ICD-10-PCS; 2022-08-27)
PROC: 3E0R3BZ Introduction of Anesthetic Agent into Spinal Canal, Percutaneous Approach (ICD-10-PCS; 2022-08-27)
PROC: 00HU33Z Insertion of Infusion Device into Spinal Canal, Percutaneous Approach (ICD-10-PCS; 2022-08-27)
DX: O70.0 First degree perineal laceration during delivery (principal); Z3A.39 39 weeks gestation of pregnancy; Z37.0 Single live birth; Z20.822 Contact with and (suspected) exposure to COVID-19
CPT/HCPCS: 01967; 0240U; 36415; 51701; 51702; 59025; 59409; 82803; 82947; 85014; 85018; 85025; 86592; 86850; 86900; 86901; A9270-GY; J0595; J2405; J2590; J2795; J7120

== ENCOUNTER 2023-02-21 04:07 | Emergency (ER) | payer BC, OTHER ==
[2023-02-21] MEDS ORDERED: diphenhydrAMINE 50 MG/ML SDV IVPUSH ONE (04:20)
[2023-02-21] MEDS ORDERED: Famotidine 20 MG/2 ML SDV IVPUSH ONE (04:20)
[2023-02-21] MEDS ORDERED: methylPREDNISolone Sodium Succinate 125 MG/2 ML SDV IVPUSH ONE (04:20)
[2023-02-21 05:18] VITALS: BP 129/81; PULSE 84
== END 2023-02-21 05:18 | disposition home or self-care (01) ==
LOC: MW.ED 04:07
DX: T78.3XXA Angioneurotic edema, initial encounter (principal); Z88.2 Allergy status to sulfonamides; Z88.0 Allergy status to penicillin; Z91.030 Bee allergy status
CPT/HCPCS: 96374; 96375; 99283; J1200; J2930; J3490; 99284

== ENCOUNTER 2023-10-03 13:43 | Emergency (ER) | payer BC, OTHER ==
[2023-10-03 14:08] LABS: BASOPHILS ABSOLUTE AUTO 0.06 K/uL (0.00-0.20); BASOPHILS PERCENT AUTO 0.6 % (0.0-1.0); EOSINOPHILS ABSOLUTE AUTO 0.12 K/uL (0.00-0.45); EOSINOPHILS PERCENT AUTO 1.1 % (0.0-6.0); HEMATOCRIT 36.8 % (37.0-47.0); HEMOGLOBIN 13.4 g/dL (12.0-16.0); IMMATURE GRAN ABSOLUTE AUTO 0.03 K/uL (0.00-0.05); IMMATURE GRAN PERCENT AUTO 0.3 % (0.0-0.4); LYMPHOCYTES ABSOLUTE AUTO 4.32 K/uL (1.00-4.80); LYMPHOCYTES PERCENT AUTO 40.3 % (24.0-44.0); MEAN CORPUSCULAR HEMOGLOBIN 30.9 pg (28.0-32.0); MEAN CORPUSCULAR HGB CONC 36.4 g/dL (32.0-36.0); MEAN PLATELET VOLUME 8.6 fL (9.4-12.3); MONOCYTES ABSOLUTE AUTO 0.46 K/uL (0.00-0.80); MONOCYTES PERCENT AUTO 4.3 % (0.0-8.0); NEUTROPHILS ABSOLUTE AUTO 5.72 K/uL (1.80-7.70); NEUTROPHILS PERCENT AUTO 53.4 % (41.0-71.0); PLATELET COUNT,PLT 269 K/uL (150-400); RED BLOOD CELL COUNT 4.33 M/uL (4.10-5.30); WHITE BLOOD CELL COUNT,WBC 10.71 K/uL (3.9-11.3)
[2023-10-03 15:16] VITALS: BP 138/87; PULSE 99
[2023-10-03 15:23] LABS: BILIRUBIN,URINE NEGATIVE (NEGATIVE); COLOR,URINE YELLOW; GLUCOSE,URINE NEGATIVE (NEGATIVE); KETONES,URINE NEGATIVE (NEGATIVE); LEUKOCYTE ESTERASE,URINE SMALL (NEGATIVE); NITRITE,URINE NEGATIVE (NEGATIVE); OCCULT BLOOD,URINE NEGATIVE (NEGATIVE); PH,URINE 6.5 (5.0-8.0); PROTEIN,URINE NEGATIVE (NEGATIVE); UROBILINOGEN,URINE 0.2 EU/dL (<2.0)
[2023-10-03 15:31] LABS: APPEARANCE,URINE HAZY
[2023-10-03 15:33] LABS: BACTERIA,URINE FEW (NEGATIVE); EPITHELIAL CELLS,URINE FEW (NONE-FEW); RBC,URINE 0-2 (0-2/HPF); WBC,URINE 0-5 (0-5/HPF)
[2023-10-03] MEDS ORDERED: Cefdinir 300 MG Cap PO ONE (17:00)
== END 2023-10-03 17:36 | disposition home or self-care (01) ==
LOC: MW.ED 13:43
DX: O20.9 Hemorrhage in early pregnancy, unspecified (principal); O23.41 Unspecified infection of urinary tract in pregnancy, first trimester; O30.001 Twin pregnancy, unspecified number of placenta and unspecified number of amniotic sacs, first trimester; Z3A.01 Less than 8 weeks gestation of pregnancy; Z79.899 Other long term (current) drug therapy; Z88.0 Allergy status to penicillin; Z88.2 Allergy status to sulfonamides; Z91.030 Bee allergy status
CPT/HCPCS: 36415; 76801; 81001; 84702; 85025; 86900; 86901; 87086; 99284; A9270; 99283